=== PATIENT | female | born 1945 ===

== ENCOUNTER 2019-07-27 20:24 | Emergency (ER) | payer MEDICARE, MEDICAID ==
[2019-07-27] MEDS ORDERED: ROCURONIUM 50 MG/5 ML INJ IV ONE ×3 (20:28→22:50)
[2019-07-27] MEDS ORDERED: SODIUM CHLORIDE 0.9% 1000 ML 3,000 ML ONE (20:34)
[2019-07-27] MEDS ORDERED: SODIUM CHLORIDE 0.9% 1000 ML 1,000 ML IV ONE ×5 (20:38→22:59)
[2019-07-27] MEDS ORDERED: ETOMIDATE 20 MG/10 ML INJ IV ONE ×2 (20:39→22:50)
[2019-07-27] MEDS ORDERED: CEFEPIME/NS 2 GM/100 ML 2 GM/100 ML BAG IV ONE (20:40)
--- NOTE | 2019-07-27 20:41 | Emergency Department Report ---
ED Altered Mental Status HPI - General Stated Complaint: VERÓNICA Time Seen by Provider: 07/27/19 20:24 Source: EMS Mode of arrival: Stretcher Limitations: Altered Mental Status, Physical Limitation - History of Present Illness Initial Comments: Patient is a 73-year-old female that presents emergency room via EMS for altered mental status, respiratory distress and hypoxia. Patient is currently on a nonrebreather and is satting 86%. Patient has been increased work to breathe. Patient is confused. Report received from EMS. Patient is currently a resident at a personal alf. Patient has a history of dementia. It is unclear the patient's baseline. MD Complaint: altered mental status, confusion -: Sudden Severity: severe Consistency of Symptoms: getting worse Treatments Prior to Arrival: oxygen - Related Data Allergies Allergy/AdvReac Type Severity Reaction Status Date / Time Unable to Assess Allergy Unverified 07/27/19 20:49 ED Review of Systems ROS: Stated complaint: VERÓNICA Other details as noted in HPI Comment: Unobtainable due to pts medical conditions ED Past Medical Hx - Past Medical History Previous Medical History?: Yes Hx Hypertension: Yes Hx Heart Attack/AMI: Yes ( ) Hx Diabetes: Yes Hx COPD: Yes Hx Dementia: Yes - Surgical History Past Surgical History?: Yes Hx Open Heart Surgery: Yes - Family History Family history: no significant - Social History Smoking Status: Never Smoker Substance Use Type: None ED Physical Exam - General Limitations: Altered Mental Status General appearance: alert, in distress - Head Head exam: Present: atraumatic, normocephalic - Eye Eye exam: Present: normal appearance, PERRL Pupils: Present: normal accommodation - ENT ENT exam: Present: mucous membranes moist - Neck Neck exam: Present: normal inspection - Respiratory Respiratory exam: Present: respiratory distress, accessory muscle use, decreased breath sounds. Absent: wheezes - Cardiovascular Cardiovascular Exam: Present: regular rate, normal rhythm. Absent: systolic murmur, diastolic murmur, rubs, gallop - GI/Abdominal GI/Abdominal exam: Present: soft, normal bowel sounds. Absent: distended, tenderness, guarding - Rectal Rectal exam: Present: deferred - Extremities Exam Extremities exam: Present: normal inspection - Back Exam Back exam: Present: normal inspection - Neurological Exam Neurological exam: Present: alert, altered - Psychiatric Psychiatric exam: Present: normal affect, normal mood - Skin Skin exam: Present: warm, dry, intact, normal color. Absent: rash - Assessment Assessment Interval: Baseline - Level of Consciousness 1a. Level of Consciousness: coma/unresponsive - LOC Questions 1b. LOC Questions: dysarthric/intubated - LOC Command 1c. LOC Commands: performs no tasks correctly - Best Gaze 2. Best Gaze: normal - Visual 3. Visual: no visual loss - Facial Palsy 4. Facial Palsy: normal symmetrical movement - Motor Arm 5a. Motor Arm Left: some gravity effort 5b. Motor Arm Right: some gravity effort - Motor Leg 6a. Motor Leg Left: some gravity effort 6b. Motor Leg Right: some gravity effort - Limb Ataxia 7. Limb Ataxia: absent - Sensory 8. Sensory: normal - Best Language 9. Best Language: coma/unresponsive - Dysarthria 10. Dysarthria: intubated or other barrier - Extinction and Inattention 11. Extinction/Inattention: no abnormality - Scoring Total Score: 17 Stroke Severity: Moderate to Severe Stroke ED Course Vital Signs 07/27/19 07/27/19 07/27/19 20:00 20:22 20:30 Pulse Rate 156 H 148 H Respiratory 29 H Rate Blood Pressure 110/70 Blood Pressure [left arm] O2 Sat by Pulse 100 96 Oximetry 07/27/19 07/27/19 07/27/19 20:45 21:00 21:15 Pulse Rate 144 H 137 H 149 H Respiratory 13 20 20 Rate Blood Pressure 71/43 114/72 118/74 Blood Pressure [left arm] O2 Sat by Pulse 100 99 100 Oximetry 07/27/19 07/27/19 07/27/19 21:30 21:45 21:49 Pulse Rate 161 H 163 H Respiratory 17 20 20 Rate Blood Pressure 123/87 116/77 Blood Pressure 110/69 [left arm] O2 Sat by Pulse 100 100 100 Oximetry 07/27/19 07/27/19 07/27/19 22:00 22:31 22:45 Pulse Rate 153 H 150 H 50 L Respiratory 20 20 9 L Rate Blood Pressure 109/68 113/70 Blood Pressure 114/72 121/80 [left arm] O2 Sat by Pulse 100 100 Oximetry 07/27/19 07/27/19 07/27/19 23:00 23:05 23:15 Pulse Rate 152 H 80 Respiratory 12 20 16 Rate Blood Pressure 171/117 111/73 Blood Pressure 113/99 [left arm] O2 Sat by Pulse 100 94 Oximetry 07/27/19 07/27/19 07/27/19 23:25 23:30 23:31 Pulse Rate 74 69 69 Respiratory 15 15 15 Rate Blood Pressure 67/40 70/33 70/33 Blood Pressure [left arm] O2 Sat by Pulse 91 96 96 Oximetry 07/27/19 07/27/19 07/28/19 23:44 23:45 00:01 Pulse Rate 64 69 81 Respiratory 15 16 Rate Blood Pressure 77/46 77/46 92/56 Blood Pressure [left arm] O2 Sat by Pulse 90 88 77 L Oximetry - Reevaluation(s) Reevaluation #1: Initial evaluation done. Patient found to be 82% on a nonrebreather. Patient have increased work to breathe. Patient is also confused with decreased responsiveness. Patient will be intubated to protect airway and for oxygenation. See procedure note. Patient found to be hypotensive and given a liter of fluids. 07/27/19 20:24 Reevaluation #2: Patient's blood pressure still low. We will place a central line and start the patient on Levophed. 07/27/19 20:47 Reevaluation #3: Central line placed. Blood pressure is improved with Levophed. See procedure note for central line. 07/27/19 21:20 Reevaluation #4: Patient went into a cardiac arrest. CPR started. Patient given medications according to ACLS protocol. 07/27/19 22:50 Patient had spontaneous return of circulation. Patient then went into a V. tach and a pericardial thump was performed. Patient will be placed on amiodarone drip. 07/27/19 22:52 Patient went into cardiac arrest again 07/27/19 23:00 Patient had spontaneous return of circulation. 07/27/19 23:06 Reevaluation #5: Patient went into cardiac arrest. 07/27/19 23:55 Patient had spontaneous return of circulation. Patient was placed on epinephrine drip. 07/27/19 23:57 Patient went into cardiac arrest. 07/28/19 00:24 Resuscitation efforts terminated due to no signs of life, no pulse, no cardiac motion. Code ran in accordance with ACLS guidelines. See code note. Family meeting will be done once the family arrives. 07/28/19 00:28 I discussed case with family. Family support given. Family states that the patient has been sick for about 8 or 9 days. Family states that the patient was on hospice but was a full code. Family states that the personal-alf was not caring for her fully due to her being on hospice. Family states that the patient was receiving pain medications and benzos for anxiety. Family states the patient was on hospice for advanced COPD. Family states the patient has not smoked a cigarette for over a week and the patient normally smokes multiple times per day. Family states they are concerned for neglect. The family has contacted the police. I discussed the case with the police. 07/28/19 01:30 - Consultations Consultation #1: Hospitalist consulted for admission. Hospitalist admit patient. 07/28/19 00:16 - Central Line Placement Right Femoral Consent Obtained: emergent situation Time Out Performed: Yes Patient Placed on Monitor/Pulse Ox: Yes Prep: mask, gown, gloves Central Line Prep: Chlorhexidine scrub, sterile drapes applied Ultrasound Used for Placement: Yes Central Line Lumen Inserted: triple Bloods Obtained for Lab: Yes Central Line Position: good blood return, all ports aspirated, flus, sutured in place with 2-0 Dressing Applied: Tegaderm Patient Tolerated Procedure: well, no complications Complications: none - Intubation Time Out Performed: Yes Sedative: Etomidate Paralytic: Succinylcholine Laryngoscope: fiberoptic video scope Size: 4 Assist Device Used: fiberoptic device ET Tube Size: 7.5 Tube Secured Depth (cm): 23 Tube Secured Location: teeth Tube Placement Confirmation: visualized tube passing t, equal breath sounds bilat, no breath sounds over epi, confirmation by capnometr Patient Tolerated Procedure: well, no complications Intubation Complications: none - Lab Data Result diagrams: 07/27/19 21:02 07/27/19 21:02 Lab Results 07/27/19 07/27/19 07/27/19 Range/Units 20:50 20:50 21:02 WBC 13.2 H (4.5-11.0) K/mm3 RBC 3.86 (3.65-5.03) M/mm3 Hgb 9.4 L (10.1-14.3) gm/dl Hct 30.3 (30.3-42.9) % MCV 79 (79-97) fl MCH 25 L (28-32) pg MCHC 31 (30-34) % RDW 19.1 H (13.2-15.2) % Plt Count 394 (140-440) K/mm3 Lymph % (Auto) 13.5 (13.4-35.0) % [place] % (Auto) 6.8 (0.0-7.3) % Eos % (Auto) 0.0 (0.0-4.3) % Baso % (Auto) 0.2 (0.0-1.8) % Lymph # 1.8 (1.2-5.4) K/mm3 [place] # 0.9 H (0.0-0.8) K/mm3 Eos # 0.0 (0.0-0.4) K/mm3 Baso # 0.0 (0.0-0.1) K/mm3 Seg Neutrophils % 79.5 H (40.0-70.0) % Seg Neutrophils # 10.5 H (1.8-7.7) K/mm3 ABG pH (7.350-7.450) pH Units ABG pCO2 mm Hg ABG pO2 (80.0-90.0) mm Hg ABG HCO3 (20.0-26.0) mmol/L ABG O2 Saturation (95.0-99.0) % ABG O2 Content (0.0-44) ABG Base Excess (-2.0-3.0) mmol/L ABG Hemoglobin (12.0-16.0) gm/dl ABG Carboxyhemoglobin (0.0-5.0) % ABG Methemoglobin (0.0-1.5) % Oxyhemoglobin (95.0-99.0) % FiO2 % Sodium (137-145) mmol/L Potassium (3.6-5.0) mmol/L Chloride (98-107) mmol/L Carbon Dioxide (22-30) mmol/L Anion Gap mmol/L BUN (7-17) mg/dL Creatinine (0.7-1.2) mg/dL Estimated GFR ml/min BUN/Creatinine Ratio % Glucose (65-100) mg/dL Lactic Acid (0.7-2.0) mmol/L Calcium (8.4-10.2) mg/dL Total Bilirubin (0.1-1.2) mg/dL AST (5-40) units/L ALT (7-56) units/L Alkaline Phosphatase (35-129) units/L Ammonia (25-60) umol/L Total Creatine Kinase (30-135) units/L Troponin T (0.00-0.029) ng/mL Total Protein (6.3-8.2) g/dL Albumin (3.9-5) g/dL Albumin/Globulin Ratio % Triglycerides (2-149) mg/dL Cholesterol (50-199) mg/dL LDL Cholesterol Direct (50-130) mg/dL HDL Cholesterol (40-59) mg/dL Cholesterol/HDL Ratio % Urine Color Yellow (Yellow) Urine Turbidity Turbid (Clear) Urine pH 5.0 (5.0-7.0) Ur Specific [place] 1.024 (1.003-1.030) Urine Protein 30 mg/dl (Negative) mg/dL Urine Glucose (UA) Neg (Negative) mg/dL Urine Ketones Neg (Negative) mg/dL Urine Blood Mod (Negative) Urine Nitrite Neg (Negative) Urine Bilirubin Neg (Negative) Urine Urobilinogen < 2.0 (<2.0) mg/dL Ur Leukocyte Esterase Neg (Negative) Urine WBC (Auto) 48.0 H (0.0-6.0) /HPF Urine RBC (Auto) 10.0 (0.0-6.0) /HPF U Epithel Cells (Auto) 19.0 H (0-13.0) /HPF Urine Bacteria (Auto) 2+ (Negative) /HPF Urine WBC Clumps 3+ /HPF Hyaline Casts 148 /LPF Urine Mucus 3+ /HPF Urine Yeast (Budding) 2+ /HPF Salicylates (2.8-20.0) mg/dL Urine Opiates Screen Presumptive positive Urine Methadone Screen Presumptive negative Acetaminophen (10.0-30.0) ug/mL Ur Barbiturates Screen Presumptive negative Ur Phencyclidine Scrn Presumptive negative Ur Amphetamines Screen Presumptive negative U Benzodiazepines Scrn Presumptive positive Urine Cocaine Screen Presumptive negative U Marijuana (THC) Screen Presumptive negative Drugs of Abuse Note Disclamer Plasma/Serum Alcohol (0-0.07) % 07/27/19 07/27/19 07/27/19 Range/Units 21:02 21:02 21:02 WBC (4.5-11.0) K/mm3 RBC (3.65-5.03) M/mm3 Hgb (10.1-14.3) gm/dl Hct (30.3-42.9) % MCV (79-97) fl MCH (28-32) pg MCHC (30-34) % RDW (13.2-15.2) % Plt Count (140-440) K/mm3 Lymph % (Auto) (13.4-35.0) % [place] % (Auto) (0.0-7.3) % Eos % (Auto) (0.0-4.3) % Baso % (Auto) (0.0-1.8) % Lymph # (1.2-5.4) K/mm3 [place] # (0.0-0.8) K/mm3 Eos # (0.0-0.4) K/mm3 Baso # (0.0-0.1) K/mm3 Seg Neutrophils % (40.0-70.0) % Seg Neutrophils # (1.8-7.7) K/mm3 ABG pH (7.350-7.450) pH Units ABG pCO2 mm Hg ABG pO2 (80.0-90.0) mm Hg ABG HCO3 (20.0-26.0) mmol/L ABG O2 Saturation (95.0-99.0) % ABG O2 Content (0.0-44) ABG Base Excess (-2.0-3.0) mmol/L ABG Hemoglobin (12.0-16.0) gm/dl ABG Carboxyhemoglobin (0.0-5.0) % ABG Methemoglobin (0.0-1.5) % Oxyhemoglobin (95.0-99.0) % FiO2 % Sodium 142 (137-145) mmol/L Potassium 4.5 (3.6-5.0) mmol/L Chloride 108.1 H (98-107) mmol/L Carbon Dioxide 16 L (22-30) mmol/L Anion Gap 22 mmol/L BUN 44 H (7-17) mg/dL Creatinine 2.2 H (0.7-1.2) mg/dL Estimated GFR 22 ml/min BUN/Creatinine Ratio 20 % Glucose 184 H (65-100) mg/dL Lactic Acid 2.60 H* (0.7-2.0) mmol/L Calcium 8.2 L (8.4-10.2) mg/dL Total Bilirubin 0.40 (0.1-1.2) mg/dL AST 18 (5-40) units/L ALT 6 L (7-56) units/L Alkaline Phosphatase 112 (35-129) units/L Ammonia 33.0 (25-60) umol/L Total Creatine Kinase 168 H (30-135) units/L Troponin T 0.044 H (0.00-0.029) ng/mL Total Protein 6.4 (6.3-8.2) g/dL Albumin 2.0 L (3.9-5) g/dL Albumin/Globulin Ratio 0.5 % Triglycerides 122 (2-149) mg/dL Cholesterol 144 (50-199) mg/dL LDL Cholesterol Direct 95 (50-130) mg/dL HDL Cholesterol 28 L (40-59) mg/dL Cholesterol/HDL Ratio 5.14 % Urine Color (Yellow) Urine Turbidity (Clear) Urine pH (5.0-7.0) Ur Specific [place] (1.003-1.030) Urine Protein (Negative) mg/dL Urine Glucose (UA) (Negative) mg/dL Urine Ketones (Negative) mg/dL Urine Blood (Negative) Urine Nitrite (Negative) Urine Bilirubin (Negative) Urine Urobilinogen (<2.0) mg/dL Ur Leukocyte Esterase (Negative) Urine WBC (Auto) (0.0-6.0) /HPF Urine RBC (Auto) (0.0-6.0) /HPF U Epithel Cells (Auto) (0-13.0) /HPF Urine Bacteria (Auto) (Negative) /HPF Urine WBC Clumps /HPF Hyaline Casts /LPF Urine Mucus /HPF Urine Yeast (Budding) /HPF Salicylates (2.8-20.0) mg/dL Urine Opiates Screen Urine Methadone Screen Acetaminophen (10.0-30.0) ug/mL Ur Barbiturates Screen Ur Phencyclidine Scrn Ur Amphetamines Screen U Benzodiazepines Scrn Urine Cocaine Screen U Marijuana (THC) Screen Drugs of Abuse Note Plasma/Serum Alcohol (0-0.07) % 07/27/19 07/27/19 07/27/19 Range/Units 21:02 21:02 21:02 WBC (4.5-11.0) K/mm3 RBC (3.65-5.03) M/mm3 Hgb (10.1-14.3) gm/dl Hct (30.3-42.9) % MCV (79-97) fl MCH (28-32) pg MCHC (30-34) % RDW (13.2-15.2) % Plt Count (140-440) K/mm3 Lymph % (Auto) (13.4-35.0) % [place] % (Auto) (0.0-7.3) % Eos % (Auto) (0.0-4.3) % Baso % (Auto) (0.0-1.8) % Lymph # (1.2-5.4) K/mm3 [place] # (0.0-0.8) K/mm3 Eos # (0.0-0.4) K/mm3 Baso # (0.0-0.1) K/mm3 Seg Neutrophils % (40.0-70.0) % Seg Neutrophils # (1.8-7.7) K/mm3 ABG pH (7.350-7.450) pH Units ABG pCO2 mm Hg ABG pO2 (80.0-90.0) mm Hg ABG HCO3 (20.0-26.0) mmol/L ABG O2 Saturation (95.0-99.0) % ABG O2 Content (0.0-44) ABG Base Excess (-2.0-3.0) mmol/L ABG Hemoglobin (12.0-16.0) gm/dl ABG Carboxyhemoglobin (0.0-5.0) % ABG Methemoglobin (0.0-1.5) % Oxyhemoglobin (95.0-99.0) % FiO2 % Sodium (137-145) mmol/L Potassium (3.6-5.0) mmol/L Chloride (98-107) mmol/L Carbon Dioxide (22-30) mmol/L Anion Gap mmol/L BUN (7-17) mg/dL Creatinine (0.7-1.2) mg/dL Estimated GFR ml/min BUN/Creatinine Ratio % Glucose (65-100) mg/dL Lactic Acid (0.7-2.0) mmol/L Calcium (8.4-10.2) mg/dL Total Bilirubin (0.1-1.2) mg/dL AST (5-40) units/L ALT (7-56) units/L Alkaline Phosphatase (35-129) units/L Ammonia (25-60) umol/L Total Creatine Kinase (30-135) units/L Troponin T (0.00-0.029) ng/mL Total Protein (6.3-8.2) g/dL Albumin (3.9-5) g/dL Albumin/Globulin Ratio % Triglycerides (2-149) mg/dL Cholesterol (50-199) mg/dL LDL Cholesterol Direct (50-130) mg/dL HDL Cholesterol (40-59) mg/dL Cholesterol/HDL Ratio % Urine Color (Yellow) Urine Turbidity (Clear) Urine pH (5.0-7.0) Ur Specific [place] (1.003-1.030) Urine Protein (Negative) mg/dL Urine Glucose (UA) (Negative) mg/dL Urine Ketones (Negative) mg/dL Urine Blood (Negative) Urine Nitrite (Negative) Urine Bilirubin (Negative) Urine Urobilinogen (<2.0) mg/dL Ur Leukocyte Esterase (Negative) Urine WBC (Auto) (0.0-6.0) /HPF Urine RBC (Auto) (0.0-6.0) /HPF U Epithel Cells (Auto) (0-13.0) /HPF Urine Bacteria (Auto) (Negative) /HPF Urine WBC Clumps /HPF Hyaline Casts /LPF Urine Mucus /HPF Urine Yeast (Budding) /HPF Salicylates < 0.3 L (2.8-20.0) mg/dL Urine Opiates Screen Urine Methadone Screen Acetaminophen < 5.0 L (10.0-30.0) ug/mL Ur Barbiturates Screen Ur Phencyclidine Scrn Ur Amphetamines Screen U Benzodiazepines Scrn Urine Cocaine Screen U Marijuana (THC) Screen Drugs of Abuse Note Plasma/Serum Alcohol < 0.01 (0-0.07) % 07/27/19 07/27/19 Range/Units 21:40 23:41 WBC (4.5-11.0) K/mm3 RBC (3.65-5.03) M/mm3 Hgb (10.1-14.3) gm/dl Hct (30.3-42.9) % MCV (79-97) fl MCH (28-32) pg MCHC (30-34) % RDW (13.2-15.2) % Plt Count (140-440) K/mm3 Lymph % (Auto) (13.4-35.0) % [place] % (Auto) (0.0-7.3) % Eos % (Auto) (0.0-4.3) % Baso % (Auto) (0.0-1.8) % Lymph # (1.2-5.4) K/mm3 [place] # (0.0-0.8) K/mm3 Eos # (0.0-0.4) K/mm3 Baso # (0.0-0.1) K/mm3 Seg Neutrophils % (40.0-70.0) % Seg Neutrophils # (1.8-7.7) K/mm3 ABG pH 7.256 L (7.350-7.450) pH Units ABG pCO2 40.8 mm Hg ABG pO2 227.3 H (80.0-90.0) mm Hg ABG HCO3 17.7 L (20.0-26.0) mmol/L ABG O2 Saturation 99.3 H (95.0-99.0) % ABG O2 Content 14.3 (0.0-44) ABG Base Excess -8.8 L (-2.0-3.0) mmol/L ABG Hemoglobin 10.0 L (12.0-16.0) gm/dl ABG Carboxyhemoglobin 1.4 (0.0-5.0) % ABG Methemoglobin 0.6 (0.0-1.5) % Oxyhemoglobin 97.3 (95.0-99.0) % FiO2 100 % Sodium (137-145) mmol/L Potassium (3.6-5.0) mmol/L Chloride (98-107) mmol/L Carbon Dioxide (22-30) mmol/L Anion Gap mmol/L BUN (7-17) mg/dL Creatinine (0.7-1.2) mg/dL Estimated GFR ml/min BUN/Creatinine Ratio % Glucose (65-100) mg/dL Lactic Acid 6.70 H* (0.7-2.0) mmol/L Calcium (8.4-10.2) mg/dL Total Bilirubin (0.1-1.2) mg/dL AST (5-40) units/L ALT (7-56) units/L Alkaline Phosphatase (35-129) units/L Ammonia (25-60) umol/L Total Creatine Kinase (30-135) units/L Troponin T (0.00-0.029) ng/mL Total Protein (6.3-8.2) g/dL Albumin (3.9-5) g/dL Albumin/Globulin Ratio % Triglycerides (2-149) mg/dL Cholesterol (50-199) mg/dL LDL Cholesterol Direct (50-130) mg/dL HDL Cholesterol (40-59) mg/dL Cholesterol/HDL Ratio % Urine Color (Yellow) Urine Turbidity (Clear) Urine pH (5.0-7.0) Ur Specific [place] (1.003-1.030) Urine Protein (Negative) mg/dL Urine Glucose (UA) (Negative) mg/dL Urine Ketones (Negative) mg/dL Urine Blood (Negative) Urine Nitrite (Negative) Urine Bilirubin (Negative) Urine Urobilinogen (<2.0) mg/dL Ur Leukocyte Esterase (Negative) Urine WBC (Auto) (0.0-6.0) /HPF Urine RBC (Auto) (0.0-6.0) /HPF U Epithel Cells (Auto) (0-13.0) /HPF Urine Bacteria (Auto) (Negative) /HPF Urine WBC Clumps /HPF Hyaline Casts /LPF Urine Mucus /HPF Urine Yeast (Budding) /HPF Salicylates (2.8-20.0) mg/dL Urine Opiates Screen Urine Methadone Screen Acetaminophen (10.0-30.0) ug/mL Ur Barbiturates Screen Ur Phencyclidine Scrn Ur Amphetamines Screen U Benzodiazepines Scrn Urine Cocaine Screen U Marijuana (THC) Screen Drugs of Abuse Note Plasma/Serum Alcohol (0-0.07) % - EKG Data -: EKG Interpreted by Ok EKG shows normal: sinus rhythm, axis, intervals, QRS complexes, ST-T waves Rate: tachycardia - Radiology Data Radiology results: report reviewed CT HEAD WITHOUT CONTRAST INDICATION : Altered Mental Status. Unresponsive. TECHNIQUE: Axial, coronal and sagittal CT imaging was performed from the skull apex through the skull base without contrast. All CT scans at this location are performed using CT dose reduction for ALARA by means of automated exposure control. COMPARISON: None available. FINDINGS: PARENCHYMA: There is age-appropriate atrophy. Multifocal areas of low- attenuation throughout the periventricular white matter likely represent chronic microvascular ischemic changes. Additional areas of decreased attenuation are seen posteriorly along the left parietal lobe and may be related to an ischemic event of uncertain age. There is nonspecific heterogeneity along the left cerebellar hemisphere that may represent a neoplasm or ischemia of uncertain age. Artifact along the skull base limits evaluation of this finding. No hemorrhage, midline shift or extra-axial collection is seen. VENTRICLES: Prominent secondary to atrophy. No acute abnormality. SOFT TISSUES: No significant abnormality of the included soft tissues/orbits. BONES: Aggressive appearing lucent changes are seen along the left occipital bone at the level of the left cerebellar hemisphere abnormality. No additional significant abnormality. SINUSES: No significant abnormality. ADDITIONAL FINDINGS: None. IMPRESSION: 1. Heterogeneity along the left cerebellar hemisphere with adjacent suspicious bony changes is concerning for malignancy until proven otherwise. Another area of low- attenuation along the posterior left parietal lobe may be secondary to malignancy or ischemia of uncertain age. An MRI of the brain with and without contrast would be helpful for further evaluation. 2. Additional findings as above. CHEST 1 VIEW INDICATION: Altered Mental Status. COMPARISON: None FINDINGS: Support devices: Endotracheal tube in satisfactory position at the level of clavicles. NG tube projects below the [id number] into the region of the upper abdomen. Heart: Cardiomegaly with CABG change. Lungs/Pleura: Patchy consolidation greatest in the right upper lobe. There may also be a left-sided pleural effusion. Additional findings: None. IMPRESSION: 1. Support devices as above. 2. Patchy airspace disease greatest in the right upper lobe consolidation suggesting pneumonia. - Medical Decision Making Patient is a 73-year-old female that presents emergency room for altered mental status, respiratory distress, hypoxia. Patient was immediately intubated. Patient's oxygen immediately improved after intubation. Patient then noted to be hypotensive and was given fluids and placed on Levophed. Patient then had a central line placed. Patient was given 3 L of fluid within 30 minutes of arrival. Patient was also given antibiotics within 30 minutes of arrival. Patient had a chest x-ray done post intubation for tube placement and was noted to have a right-sided pneumonia. Patient had multiple cardiac arrest and were placed on multiple pressors. Patient then went into a cardiac arrest for the last time and resuscitation efforts were terminated due to no signs of life. Patient found to have multiple lab abnormalities. - Differential Diagnosis Respiratory distress, hypoxia, AMS, Sob. Cardiac arrest Critical Care Time: Yes Critical care time in (mins) excluding proc time.: 85 Critical care attestation.: If time is entered above; I have spent that time in minutes in the direct care of this critically ill patient, excluding procedure time. Critical Care Time: 85 minutes ED Disposition Clinical Impression: Cardiac arrest, Lactic acid acidosis, Metabolic acidosis Altered mental state Qualifiers: Altered mental status type: unspecified Qualified Code(s): R41.82 - Altered mental status, unspecified Pneumonia Qualifiers: Pneumonia type: due to unspecified organism Laterality: unspecified laterality Lung location: unspecified part of lung Qualified Code(s): J18.9 - Pneumonia, unspecified organism Respiratory failure Qualifiers: Chronicity: acute Respiratory failure complication: hypoxia Qualified Code(s): J96.01 - Acute respiratory failure with hypoxia Acute renal failure Qualifiers: Acute renal failure type: unspecified Qualified Code(s): N17.9 - Acute kidney failure, unspecified Disposition: DC-20 Is pt being admited?: No Does the pt Need Aspirin: No Condition: Undetermined Time of Disposition: 01:51
[2019-07-27] MEDS ORDERED: MINERAL OIL/PETROLATUM, WHITE OPHTH OINT 3.5 GM OU PRN (20:48)
[2019-07-27] MEDS ORDERED: LIP THERAPY VASELINE TP PRN (20:48)
[2019-07-27] MEDS ORDERED: NORepinephrine/NS 4 MG-250 ML 4 MG/250 ML BAG IV ONE (20:54)
[2019-07-27] MEDS ORDERED: fentaNYL DRIP Premix 2,000 MCG/100 ML BAG IV SCH (21:00)
[2019-07-27 21:19] LABS: Amphetamine Screen,Urine PRESUMPTIVE NEGATIVE; Cannabinoid Screen,Urine PRESUMPTIVE NEGATIVE; Cocaine Screen,Urine PRESUMPTIVE NEGATIVE; Methadone Screen,Urine PRESUMPTIVE NEGATIVE
[2019-07-27 21:22] LABS: Bacteria,Urine 2+ /HPF (Negative); Bilirubin,Urine NEG (Negative); Blood,Urine MOD (Negative); Color,Urine Yellow (Yellow); Hyaline Casts,Urine 148 /LPF; Mucus,Urine 3+ /HPF; Urobilinogen,Urine < 2.0 mg/dL (<2.0)
[2019-07-27 21:36] LABS: Benzodiazepines Screen,Urine PRESUMPTIVE POSITIVE; Opiate Screen,Urine PRESUMPTIVE POSITIVE
[2019-07-27 21:43] LABS: Basophils % (Auto) 0.2 % (0.0-1.8); Hematocrit 30.3 % (30.3-42.9); Hemoglobin 9.4 gm/dl (10.1-14.3); Lymphocytes # (Auto) 1.8 K/mm3 (1.2-5.4); Lymphocytes % (Auto) 13.5 % (13.4-35.0); Mean Corpuscular HGB Conc 31 % (30-34); Mean Corpuscular Volume 79 fl (79-97); Monocytes # (Auto) 0.9 K/mm3 (0.0-0.8); Monocytes % (Auto) 6.8 % (0.0-7.3); Platelet Count 394 K/mm3 (140-440); Red Blood Count 3.86 M/mm3 (3.65-5.03); Red Cell Distribution Width 19.1 % (13.2-15.2)
--- NOTE | 2019-07-27 21:43 | XRay Report ---
CHEST 1 VIEW INDICATION: Altered Mental Status. COMPARISON: None FINDINGS: Support devices: Endotracheal tube in satisfactory position at the level of clavicles. NG tube projec ts below the [id number] into the region of the upper abdomen. Heart: Cardiomegaly with CABG change. Lungs/Pleura: Patchy consolidation greatest in the right upper lobe. There may also be a left-sided p leural effusion. Additional findings: None. IMPRESSION: 1. Support devices as above. 2. Patchy airspace disease greatest in the right upper lobe consolidation suggesting pneumonia. Signer Name: Choco Arana MD Signed: 07/27/2019 9:39 PM Workstation Name: [id number]
[2019-07-27 21:53] LABS: ABG Base Excess -8.8 mmol/L (-2.0-3.0); ABG HCO3 17.7 mmol/L (20.0-26.0); ABG Methemoglobin 0.6 % (0.0-1.5); ABG Oxygen Saturation 99.3 % (95.0-99.0); ABG PCO2 40.8 mm Hg; ABG PH 7.256 pH Units (7.350-7.450); ABG PO2 227.3 mm Hg (80.0-90.0)
[2019-07-27 21:56] LABS: Calcium 8.2 mg/dL (8.4-10.2)
[2019-07-27] MEDS ORDERED: NORepinephrine/NS 4 MG-250 ML 4 MG/250 ML BAG IV SCH (22:00)
[2019-07-27 22:08] LABS: Chol/HDL Ratio 5.14 %
[2019-07-27] MEDS ORDERED: VANCOMYCIN/NS 1 GM/250 ML 1 GM/250 ML BAG IV ONE (22:47)
[2019-07-27] MEDS ORDERED: SODIUM BICARB 8.4% 50 MEQ/50 ML SYRINGE IV ONE (22:50)
[2019-07-27] MEDS ORDERED: AMIODARONE 150 MG/3 ML INJ IV ONE (22:50)
[2019-07-27] MEDS ORDERED: ATROPINE 0.1% (1 MG/10 ML) CARDIAC SYRINGE ONE (22:50)
[2019-07-27] MEDS ORDERED: EPINEPHrine 1:10,000 1 MG/10 ML SYRINGE ONE (22:50)
[2019-07-27] MEDS ORDERED: AMIODARONE 900 MG in DEXTROSE 5% IN WATER 482 ML IV SCH (23:00)
[2019-07-27] MEDS ORDERED: VANCOMYCIN 1,500 MG in SODIUM CHLORIDE 0.9% 500 ML 500 ML IV ONE (23:15)
--- NOTE | 2019-07-27 23:22 | Cat Scan Report ---
CT HEAD WITHOUT CONTRAST INDICATION : Altered Mental Status. Unresponsive. TECHNIQUE: Axial, coronal and sagittal CT imaging was performed from the skull apex through the skul l base without contrast. All CT scans at this location are performed using CT dose reduction for ALA RA by means of automated exposure control. COMPARISON: None available. FINDINGS: PARENCHYMA: There is age-appropriate atrophy. Multifocal areas of low-attenuation throughout the per iventricular white matter likely represent chronic microvascular ischemic changes. Additional areas o f decreased attenuation are seen posteriorly along the left parietal lobe and may be related to an is chemic event of uncertain age. There is nonspecific heterogeneity along the left cerebellar hemispher e that may represent a neoplasm or ischemia of uncertain age. Artifact along the skull base limits ev aluation of this finding. No hemorrhage, midline shift or extra-axial collection is seen. VENTRICLES: Prominent secondary to atrophy. No acute abnormality. SOFT TISSUES: No significant abnormality of the included soft tissues/orbits. BONES: Aggressive appearing lucent changes are seen along the left occipital bone at the level of th e left cerebellar hemisphere abnormality. No additional significant abnormality. SINUSES: No significant abnormality. ADDITIONAL FINDINGS: None. IMPRESSION: 1. Heterogeneity along the left cerebellar hemisphere with adjacent suspicious bony changes is rosibel rning for malignancy until proven otherwise. Another area of low-attenuation along the posterior left parietal lobe may be secondary to malignancy or ischemia of uncertain age. An MRI of the brain with and without contrast would be helpful for further evaluation. 2. Additional findings as above. Signer Name: Thang Schneider MD Signed: 07/27/2019 11:18 PM Workstation Name: [id number]
[2019-07-27] MEDS ORDERED: DOPamine/D5W 800 MG/250 ML 800 MG/250 ML BAG IV ONE (23:29)
[2019-07-27] MEDS ORDERED: methylPREDNISolone Sod Succinate 125 MG/2 ML INJ ONE (23:50)
[2019-07-27] MEDS ORDERED: methylPREDNISolone Sod Succinate 125 MG/2 ML INJ IV ONE (23:50)
[2019-07-27] MEDS ORDERED: DOBUTamine/D5W 500 MG/250 ML 500 MG/250 ML BAG IV ONE (23:50)
[2019-07-27] MEDS: DOBUTamine/D5W 500 MG/250 ML 500 MG/250 ML BAG IV ONE ×2 (23:51→23:58)
[2019-07-27] MEDS ORDERED: EPINEPHrine 1:1000 8 MG in SODIUM CHLORIDE 0.9% 250ML 242 ML IV ONE (23:59)
[2019-07-28 01:15] VITALS: BP 113/99
== END 2019-07-28 03:53 ==
LOC: ED 20:24
DX: I46.9 Cardiac arrest, cause unspecified (principal); E87.2 Acidosis; R41.82 Altered mental status, unspecified; J18.9 Pneumonia, unspecified organism; J96.01 Acute respiratory failure with hypoxia; N17.9 Acute kidney failure, unspecified; I10 Essential (primary) hypertension; I25.2 Old myocardial infarction; E11.9 Type 2 diabetes mellitus without complications; J44.9 Chronic obstructive pulmonary disease, unspecified; Z98.890 Other specified postprocedural states
CPT/HCPCS: 31500; 36415; 36556; 70450; 71045; 80053; 80061; 80307; 81001; 82140; 82550; 82803; 84484; 85025; 87040; 87070; 87086; 87205; 93005; 93010; 99291; 99292; J0171; J0282; J0461; J0692; J1250; J2930; J3010; J3370; J7030; J7040; J7050; J7060; 80320; 94002; G0480; J2704